=== PATIENT | female | born 1955 | race Caucasian/White ===

== ENCOUNTER → 2022-08-29 14:48 | Outpatient (BNVA) | payer MEDICARE, SELFPAY | PROVIDERS: PCP Internal Medicine; Visit Provider Hospitalist | DX: J41.0 Simple chronic bronchitis (principal); R06.09 Other forms of dyspnea | CPT/HCPCS: 99202 ==

== ENCOUNTER 2022-09-09 07:42 | Outpatient (REF) | payer MEDICARE, SELFPAY ==
--- NOTE | ~2022-09-09 | XR_ITS ---
EXAMINATION: XR CHEST CLINICAL INFORMATION: Dyspnea COMPARISON: None TECHNIQUE: 2 views of the chest were obtained. FINDINGS: No significant abnormality is noted involving the heart, lungs, mediastinum, bony thorax or soft tissues. XR/XR chest 2V IMPRESSION: Unremarkable chest examination.
--- NOTE | 2022-09-09 10:38 | PFT_ITS ---
Forced vital capacity 73%. FEV1 35%. FEV1/FVC ratio is 37. RUN59-51 14% and MVV 30%. Post bronchodilator therapy, there is no significant change. Total lung capacity 112% and residual volume 150%. Diffusion capacity 45%. CONCLUSION: There is evidence of very severe obstructive airway disorder. No significant response to bronchodilator therapy. There is evidence of hyperinflation and air trapping. Clinical correlation is recommended. MD SANJANA Hurley/MODL / [id number]
== END 2022-09-09 07:43 | disposition home or self-care (01) ==
LOC: HO.RESP 07:42
PROVIDERS: PCP Internal Medicine; Visit Provider Hospitalist
DX: R06.00 Dyspnea, unspecified (principal)
CPT/HCPCS: 71046; 94060; 94727; 94729

== ENCOUNTER → 2022-10-11 12:59 | Outpatient (BNVA) | payer MEDICARE, SELFPAY | PROVIDERS: PCP Internal Medicine; Visit Provider Hospitalist | DX: R06.09 Other forms of dyspnea (principal); J41.0 Simple chronic bronchitis | CPT/HCPCS: 99212 ==

== ENCOUNTER 2023-04-10 13:00 | Outpatient (AMB) | payer MEDICARE, SELFPAY ==
--- NOTE | 2023-04-10 13:07 | MHC.OFFVIS ---
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: No Allergies amoxicillin [From Augmentin] Allergy (Unknown, Verified 04/10/23 13:10) Unknown ciprofloxacin Allergy (Unknown, Verified 04/10/23 13:10) Unknown clavulanic acid [From Augmentin] Allergy (Unknown, Verified 04/10/23 13:10) Unknown doxycycline Allergy (Unknown, Verified 04/10/23 13:10) Unknown erythromycin base Allergy (Unknown, Verified 04/10/23 13:10) Unknown hydrocodone Allergy (Unknown, Verified 04/10/23 13:10) Unknown sulfamethoxazole [From Bactrim] Allergy (Unknown, Verified 04/10/23 13:10) Unknown trimethoprim [From Bactrim] Allergy (Unknown, Verified 04/10/23 13:10) Unknown Nolex Allergy (Unknown, Uncoded 04/10/23 13:10) Unknown HPI HPI Comments History of Present Illness Details The patient is a 67 year woman who was a former smoker presenting with progressive dyspnea on exertion. She has been noticing worsening symptoms for the last several years. She does state that her symptoms became more apparent after she developed a COVID like illness early in 2019. Typically when she is going a flight of stairs. Moderate severity. Denies any chest pains or palpitations. The patient denies any significant productive cough. As far as exposures she used to smoke but she quit smoking more than 15 years ago. In addition to that she did work in a [employer] company and was some exposure to asbestos. the patient does have a rescue inhaler but does not typically use it. during the examination she was noted to be somewhat barrel-chested and the patient did have diminished breath sounds with some end expiratory wheezing on forced exhalation. Therefore will go ahead and investigate further for any significant obstructive airway disease. 10/11/2022 the patient is here for pulmonary follow-up visit. The patient overall is feeling a lot better on the Trelegy inhaler. She was able to continue it. Recently she was outside working in the [employer] and she felt some increased chest tightness and she had to use her albuterol. However she has not had to use it as often anymore. She did undergo pulmonary function studies which we personally reviewed. The patient does have a severe degree of COPD. Also has severe degree of diffusion impairment. And significant air trapping. She manages this degree of obstruction very well. The patient does get dyspnea on exertion. She does benefit from pulmonary rehabilitation. She also had a chest x-ray demonstrate any acute disease just hyperinflation of the lungs. Therefore, she was going to continue with current respiratory therapy and she will start pulmonary rehabilitation once available. 04/10/2023 the patient is here for pulmonary follow-up visit. Overall the patient still about the same. Complains of dyspnea on exertion. Ibdx-gn-ztrzwmbg severity. She has been on the Trelegy. She is wondering if this is making her gain weight. Unfortunately she had to stop doing the pulmonary rehabilitation based on the fact that her family member got sick and she has been taking care of them. We did talk about underlying pulmonary rehab but she does not have any in should not. Therefore she will continue with the Trelegy for now. Will optimize therapy by adding theophylline to the regimen. We did talk about potential side effects on medication. The patient was start Will 1 tablet daily and then she increase it to twice a day. She will come in and months and also have levels checked to make sure that she is within therapeutic range or lower. [facility] Medical History (Updated 08/29/22 @ 21:23 by Severiano Santamaria MD) Dyspnea Social History (Updated 08/29/22 @ 15:06 by ABEBA Fletcher) Household Members: Spouse and Children Patient Tobacco Use Status: Former Tobacco user Tobacco use type: Cigarette Years Smoked: 20 Second Hand Smoke Exposure: No Review of Systems Const Denies fever(s) Eyes Denies change in vision ENT Denies change in voice Card Denies chest pain, Denies palpitations and Reports dyspnea on exertion Resp Denies chest congestion and Reports dyspnea on exertion GI Reports no additional complaints Musc Reports no additional complaints Skin/Breast Denies rash Neuro Reports no additional complaints Endo Reports no additional complaints and Denies palpitations [place]/Lymph Denies easy bruising Aller/Immun Reports no additional complaints Physical Exam Vital Signs: Last Vital Signs Pulse 79 04/10/23 13:08 BP 128/70 04/10/23 13:08 Pulse Ox 97 04/10/23 13:08 Oxygen Delivery Method Room Air 04/10/23 13:08 BMI result Body Mass Index 24.4 Const General: comfortable HEENT Head: Yes normal to inspection Eyes General: appearance normal, both eyes and all related structures Neck Neck: Yes supple Chest Chest palpation & inspection: normal inspection of the chest Resp Effort & Inspection: normal respiratory effort Auscultation: no wheezes and diminished lung sounds Cardio Rate: regular rate Rhythm: regular rhythm Heart sounds: S1 normal heart sound present and S2 normal heart sound present GI Auscultation: normal bowel sounds Skin Rashes: no rashes Extrem General: Yes no clubbing, cyanosis or edema Assessment & Plan Assessment & Plan (1) Dyspnea: Code(s): R06.00 - Dyspnea, unspecified Qualifiers: Dyspnea type: dyspnea on exertion Qualified Code(s): R06.09 - Other forms of dyspnea (2) COPD (chronic obstructive pulmonary disease): Comment: Suspicion Code(s): J44.9 - Chronic obstructive pulmonary disease, unspecified Qualifiers: COPD type: chronic bronchitis Chronic bronchitis type: simple Qualified Code(s): J41.0 - Simple chronic bronchitis Plan continue Trelegy CLAUS as needed start Theophylline labs, theophylline level pulmonary rehab discontinued by ot F/U 4-6 months Orders: Orders Basic Metabolic Panel Today J44.9 - Chronic obstructive pulmonary disease, unspecified Liver Panel Today J44.9 - Chronic obstructive pulmonary disease, unspecified Complete Blood Count Auto Diff Today J44.9 - Chronic obstructive pulmonary disease, unspecified Theophylline Today J44.9 - Chronic obstructive pulmonary disease, unspecified Medications: New theophylline ER 300 mg PO Q12H 30 days 60 tabs 4RF Coding Level of Care Code Est Pt Level 4 (20394) Diagnoses Dyspnea R06.09 Dyspnea type: dyspnea on exertion COPD (chronic obstructive pulmonary disease) J41.0 COPD type: chronic bronchitis Chronic bronchitis type: simple Time Spent (min) 17
[2023-04-10 13:08] VITALS: BP 128/70; PULSE 79; O2SAT 97; BMI 24.4
== END 2023-04-10 13:38 | disposition home or self-care (01) ==
PROVIDERS: PCP Internal Medicine; Visit Provider Hospitalist
DX: R06.09 Other forms of dyspnea (principal); J41.0 Simple chronic bronchitis
CPT/HCPCS: 99214

== ENCOUNTER → 2023-04-10 13:00 | Outpatient (BNVA) | payer MEDICARE, SELFPAY | PROVIDERS: PCP Internal Medicine; Visit Provider Hospitalist | DX: R06.00 Dyspnea, unspecified (principal); J41.0 Simple chronic bronchitis | CPT/HCPCS: 99212 ==

== ENCOUNTER 2023-06-26 09:27 | Outpatient (AMB) | payer MEDICARE, SELFPAY ==
[2023-06-26 09:36] VITALS: BP 138/72; PULSE 85; O2SAT 98; BMI 25.0
--- NOTE | 2023-06-26 09:36 | A.OFFVIS_ITS ---
Intake Vital Signs 06/26/23 09:36 Height 5 ft 2 in Weight 136 lb 10.986 oz BMI 25.0 BP 138/72 Blood Pressure Location Lt brachial Position Sitting Pulse 85 Pulse Source Doppler Pulse Oximetry (%) 98 Oxygen Delivery Method Room Air Intake Visit Reasons: PFT Follow Up Allergies amoxicillin [From Augmentin] Allergy (Unknown, Verified 06/26/23 09:38) Unknown ciprofloxacin Allergy (Unknown, Verified 06/26/23 09:38) Unknown clavulanic acid [From Augmentin] Allergy (Unknown, Verified 06/26/23 09:38) Unknown doxycycline Allergy (Unknown, Verified 06/26/23 09:38) Unknown erythromycin base Allergy (Unknown, Verified 06/26/23 09:38) Unknown hydrocodone Allergy (Unknown, Verified 06/26/23 09:38) Unknown sulfamethoxazole [From Bactrim] Allergy (Unknown, Verified 06/26/23 09:38) Unknown trimethoprim [From Bactrim] Allergy (Unknown, Verified 06/26/23 09:38) Unknown Nolex Allergy (Unknown, Uncoded 04/10/23 13:10) Unknown HPI HPI Comments History of Present Illness Details The patient is a 68 year woman who was a former smoker presenting with progressive dyspnea on exertion. She has been noticing worsening symptoms for the last several years. She does state that her symptoms became more apparent after she developed a COVID like illness early in 2019. Typically when she is going a flight of stairs. Moderate severity. Denies any chest pains or palpitations. The patient denies any significant productive cough. As far as exposures she used to smoke but she quit smoking more than 15 years ago. In addition to that she did work in a [employer] company and was some exposure to asbestos. the patient does have a rescue inhaler but does not typically use it. during the examination she was noted to be somewhat barrel-chested and the patient did have diminished breath sounds with some end expiratory wheezing on forced exhalation. Therefore will go ahead and investigate further for any significant obstructive airway disease. 10/11/2022 the patient is here for pulmon vitaly follow-up visit. The patient debra ward is feeling a lot better on the Trelegy inhaler. She was able to continue it. Recently she was outside working in the [employer] and she felt some increased chest tightness and she had to use her albuterol. However she has not had to use it as often anymore. She did undergo pulmonary function studies which we personally reviewed. The patient does have a severe degree of COPD. Also has severe degree of diffusion impairment. And significant air trapping. She manages this degree of obstruction very well. The patient does get dyspnea on exertion. She does benefit from pulmonary rehabilitation. She also had a chest x-ray demonstrate any acute disease just hyperinflation of the lungs. Therefore, she was going to continue with current respiratory therapy and she will start pulmonary rehabilitation once available. 04/10/2023 the patient is here for pulmon vitaly follow-up visit. Overall the patient still about the same. Complains of dyspnea on exertion. Dohy-os-jskqvbei severity. She has been on the Trelegy. She is wondering if this is making her gain weight. Unfortunately she had to stop doing the pulmonary rehabilitation based on the fact that her family member got sick and she has been taking care of them. We did talk about underlying pulmonary rehab but she does not have any in should not. Therefore she will continue with the Trelegy for now. Will optimize therapy by adding theophylline to the regimen. We did talk about potential side effects on medication. The patient was start Will 1 tablet daily and then she increase it to twice a day. She will come in and months and also have levels checked to make sure that she is within therapeutic range or lower. 06/26/2023 the patient is here for a pulm onary follow-up visit. The patient is overall feeling better overall. He she continues to use the Trelegy inhaler. She has not had to use her rescue inhaler. She continues to do some exercise at home. Although I did provide her with the online pulmonary rehab information her for her to start the online rehab. The patient also tried theophylline. Unfortunately she had adverse effects and she stop the quickly which is good. Overall she is doing better she is not having significant wheezing at this time. Will not add any additional medications at this time. She will continue with current respiratory regimen will follow-up in 8 months. [facility] Medical History (Updated 06/26/23 @ 18:57 by Severiano Santamaria MD) Dyspnea Social History Household Members: Spouse and Children Patient Tobacco Use Status: Former Tobacco user Tobacco use type: Cigarette Years Smoked: 20 Second Hand Smoke Exposure: No Review of Systems Const Denies fever(s) Eyes Denies change in vision ENT Denies change in voice Card Denies chest pain, Denies palpitations and Reports dyspnea on exertion Resp Denies chest congestion and Reports dyspnea on exertion GI Reports no additional complaints Musc Reports no additional complaints Skin/Breast Denies rash Neuro Reports no additional complaints Endo Reports no additional complaints and Denies palpitations [place]/Lymph Denies easy bruising Aller/Immun Reports no additional complaints Physical Exam Vital Signs: Last Vital Signs Pulse 85 06/26/23 09:36 BP 138/72 06/26/23 09:36 Pulse Ox 98 06/26/23 09:36 Oxygen Delivery Method Room Air 06/26/23 09:36 BMI result Body Mass Index 25.0 Const General: comfortable HEENT Head: Yes normal to inspection Eyes General: appearance normal, both eyes and all related structures Neck Neck: Yes supple Chest Chest palpation & inspection: normal inspection of the chest Resp Effort & Inspection: normal respiratory effort Auscultation: no wheezes and diminished lung sounds Cardio Rate: regular rate Rhythm: regular rhythm Heart sounds: S1 normal heart sound present and S2 normal heart sound present GI Auscultation: normal bowel sounds Skin Rashes: no rashes Extrem General: Yes no clubbing, cyanosis or edema Assessment & Plan Assessment & Plan (1) Dyspnea: Code(s): R06.00 - Dyspnea, unspecified Qualifiers: Dyspnea type: dyspnea on exertion Qualified Code(s): R06.09 - Other forms of dyspnea (2) COPD (chronic obstructive pulmonary disease): Code(s): J44.9 - Chronic obstructive pulmonary disease, unspecified Qualifiers: COPD type: chronic bronchitis Chronic bronchitis type: simple Qualified Code(s): J41.0 - Simple chronic bronchitis Plan continue Trelegy CLAUS as needed stopped Theophylline due to adverse effects pulmonary rehab discontinued F/U 8-12 months Coding Level of Care Code Est Pt Level 4 (63273) Diagnoses Dyspnea on exertion R06.09 Dyspnea type: dyspnea on exertion Simple chronic bronchitis J41.0 COPD type: chronic bronchitis Chronic bronchitis type: simple Time Spent (min) 16
== END 2023-06-26 10:02 | disposition home or self-care (01) ==
PROVIDERS: PCP Internal Medicine; Visit Provider Hospitalist
DX: R06.09 Other forms of dyspnea (principal); J41.0 Simple chronic bronchitis
CPT/HCPCS: 99214

== ENCOUNTER → 2023-06-26 09:27 | Outpatient (BNVA) | payer MEDICARE, SELFPAY | PROVIDERS: PCP Internal Medicine; Visit Provider Hospitalist | DX: R06.09 Other forms of dyspnea (principal); J41.0 Simple chronic bronchitis | CPT/HCPCS: 99212 ==

== ENCOUNTER 2024-01-12 09:29 | Outpatient (REF) | payer MEDICARE, SELFPAY ==
--- NOTE | ~2024-01-12 | XR_ITS ---
EXAMINATION: XR CHEST CLINICAL INFORMATION: Simple chronic bronchitis. COMPARISON: 09/09/2022. TECHNIQUE: 2 views of the chest were obtained. FINDINGS: Increased streaky opacities at the lung bases, right greater than left characteristic of atelectasis/scar, although an infectious/inflammatory process should also be considered in the appropriate clinical setting. No pleural effusion. No new focal consolidation to suggest pneumonia. Degenerative changes in the thoracic spine. XR/XR chest 2V IMPRESSION: Increased streaky opacities at the lung bases, right greater than left, characteristic of atelectasis/scar, although an infectious/inflammatory process should also be considered in the appropriate clinical setting.
[2024-01-12 10:58] LABS: MANUAL DIFF FLAG NO
[2024-01-12 11:22] LABS: Basophils Absolute Auto 0.1 X10*3/uL (0.0-0.2); Basophils Percent Auto 0.9 % (0-2); Eosinophils Absolute Auto 0.1 X10*3/uL (0.0-0.4); Eosinophils Percent Auto 2.5 % (0-4); Hematocrit 42.3 % (37.0-47.0); Hemoglobin 14.4 g/dl (12.0-16.0); Imm Gran Abs Auto 0.04 X10*3/uL (0.00-0.03); Imm Gran Pct Auto 0.7 % (0.0-0.4); Lymphocytes Absolute Auto 0.9 X10*3/uL (1.2-4.9); Lymphocytes Percent Auto 15.6 % (20-40); Mean Corpuscular Hemoglobin 31.4 pg (27.0-33.0); Mean Corpuscular Volume 92.2 fL (80.0-98.0); Mean Platelet Volume 11.1 fL (9.4-12.3); Monocytes Absolute Auto 0.5 X10*3/uL (0.1-1.2); Neutrophils Absolute Auto 4.1 x10*3/uL (2.0-8.3); Neutrophils Percent Auto 72.3 % (45-73); Platelet Count 186 X10*3/uL (160-400); Red Blood Count 4.59 X10*6/uL (4.20-5.50); Red Cell Distribution Width 13.4 % (11.0-16.0); White Blood Count 5.6 X10*3/uL (4.8-10.8)
[2024-01-12 12:01] LABS: Alanine Aminotransferase 19 U/L (0-31); Albumin Level 4.6 g/dL (3.5-5.0); Alkaline Phosphatase 93 U/L (39-117); Anion Gap 15 (12-20); Aspartate Amino Transferase 17 U/L (5-31); Bilirubin Direct 0.3 mg/dL (0.0-0.5); Bilirubin Total 1.1 mg/dL (0.0-1.0); Blood Urea Nitrogen 8 mg/dL (9-16); Calcium 9.7 mg/dL (8.4-10.2); Carbon Dioxide 25 mmol/L (22-29); Chloride 106 mmol/L (96-108); Estimated Glomerular Filt Rate > 60; Glucose Random 92 mg/dL (60-115); Potassium 3.9 mmol/L (3.3-5.1); Sodium 142 mmol/L (135-145); Total Protein 7.5 g/dL (6.5-8.0)
[2024-01-14 08:30] LABS: Theophylline 1.3
== END 2024-01-12 09:30 | disposition home or self-care (01) ==
LOC: HO.LAB 09:29
PROVIDERS: PCP Internal Medicine; Visit Provider Hospitalist
DX: J41.0 Simple chronic bronchitis (principal); R06.09 Other forms of dyspnea; Z86.16 Personal history of COVID-19
CPT/HCPCS: 36415; 71046; 80048; 80076; 80198; 85025; 99212

== ENCOUNTER 2024-01-12 09:29 | Outpatient (AMB) | payer MEDICARE, SELFPAY ==
[2024-01-12 09:53] VITALS: BP 132/70; PULSE 76; O2SAT 97; BMI 23.8
--- NOTE | 2024-01-12 09:53 | MHC.OFFVIS ---
Vital Signs 01/12/24 09:53 Height 5 ft 2 in Weight 130 lb BMI 23.8 BP 132/70 Blood Pressure Location Lt brachial Position Sitting Pulse 76 Pulse Source Pulse Oximeter Pulse Oximetry (%) 97 Oxygen Delivery Method Room Air Intake Visit Reasons: COPD Cigarette Examiner Required: No Allergies amoxicillin [From Augmentin] Allergy (Unknown, Verified 01/12/24 09:55) Unknown ciprofloxacin Allergy (Unknown, Verified 01/12/24 09:55) Unknown clavulanic acid [From Augmentin] Allergy (Unknown, Verified 01/12/24 09:55) Unknown doxycycline Allergy (Unknown, Verified 01/12/24 09:55) Unknown erythromycin base Allergy (Unknown, Verified 01/12/24 09:55) Unknown hydrocodone Allergy (Unknown, Verified 01/12/24 09:55) Unknown sulfamethoxazole [From Bactrim] Allergy (Unknown, Verified 01/12/24 09:55) Unknown trimethoprim [From Bactrim] Allergy (Unknown, Verified 01/12/24 09:55) Unknown theophylline Adverse Reaction (Intermediate, Unverified 01/12/24 21:48) Anxiety Nolex Allergy (Unknown, Uncoded 01/12/24 09:55) Unknown HPI Comments Details: The patient is a 68 year woman who was a former smoker presenting with progressive dyspnea on exertion. She has been noticing worsening symptoms for the last several years. She does state that her symptoms became more apparent after she developed a COVID like illness early in 2019. Typically when she is going a flight of stairs. Moderate severity. Denies any chest pains or palpitations. The patient denies any significant productive cough. As far as exposures she used to smoke but she quit smoking more than 15 years ago. In addition to that she did work in a [employer] company and was some exposure to asbestos. the patient does have a rescue inhaler but does not typically use it. during the examination she was noted to be somewhat barrel-chested and the patient did have diminished breath sounds with some end expiratory wheezing on forced exhalation. Therefore will go ahead and investigate further for any significant obstructive airway disease. 10/11/2022 the patient is here for pulmonary follow-up visit. The patient overall is feeling a lot better on the Trelegy inhaler. She was able to continue it. Recently she was outside working in the [employer] and she felt some increased chest tightness and she had to use her albuterol. However she has not had to use it as often anymore. She did undergo pulmonary function studies which we personally reviewed. The patient does have a severe degree of COPD. Also has severe degree of diffusion impairment. And significant air trapping. She manages this degree of obstruction very well. The patient does get dyspnea on exertion. She does benefit from pulmonary rehabilitation. She also had a chest x-ray demonstrate any acute disease just hyperinflation of the lungs. Therefore, she was going to continue with current respiratory therapy and she will start pulmonary rehabilitation once available. 04/10/2023 the patient is here for pulmonary follow-up visit. Overall the patient still about the same. Complains of dyspnea on exertion. Solt-hh-amiofaos severity. She has been on the Trelegy. She is wondering if this is making her gain weight. Unfortunately she had to stop doing the pulmonary rehabilitation based on the fact that her family member got sick and she has been taking care of them. We did talk about underlying pulmonary rehab but she does not have any in should not. Therefore she will continue with the Trelegy for now. Will optimize therapy by adding theophylline to the regimen. We did talk about potential side effects on medication. The patient was start Will 1 tablet daily and then she increase it to twice a day. She will come in and months and also have levels checked to make sure that she is within therapeutic range or lower. 06/26/2023 the patient is here for a pulmonary follow-up visit. The patient is overall feeling better overall. He she continues to use the Trelegy inhaler. She has not had to use her rescue inhaler. She continues to do some exercise at home. Although I did provide her with the online pulmonary rehab information her for her to start the online rehab. The patient also tried theophylline. Unfortunately she had adverse effects and she stop the quickly which is good. Overall she is doing better she is not having significant wheezing at this time. Will not add any additional medications at this time. She will continue with current respiratory regimen will follow-up in 8 months. 01/12/2024 the patient is here for pulmonary follow-up visit. Overall the patient has been doing fairly well. Now with the season change she does have a hard time at times, with worsening dyspnea on exertion [id number] severity. She does use her rescue inhaler. Trelegy inhaler has been affecting beneficial. She does use her rescue inhaler a couple times a week. She does get winded going up a flight of stairs. We did look at her PFTs from 2022 which demonstrated a did diffusing capacity 45% predicted. Her pulse ox today was 95% which is reassuring. Will go ahead and plan to repeat her PFTs and a 6 minute walk test in a year's time. The patient may indeed reach a point where she may benefit from oxygen supplementation with activity. The patient also documented a cough. The cough at times can be productive in nature specially before dinner. We did talk about vasomotor rhinitis potentially result in worsening secretions. She can try the ipratropium nasal spray which I provided for her. Patient should also have a chest x-ray since she has not had an x-ray in a year. If she has any worsening symptoms she can always call for an earlier assessment otherwise will follow-up next year with PFTs and a 6 minute walk test. [facility] Medical History (Updated 01/12/24 @ 10:20 by Severiano Santamaria MD) Chronic cough Dyspnea Social History Household Members: Spouse and Children Patient Tobacco Use Status: Former Tobacco user Tobacco use type: Cigarette Years Smoked: 20 Second Hand Smoke Exposure: No Review of Systems Const Denies fever(s) Eyes Denies change in vision ENT Denies change in voice Card Denies chest pain, Denies palpitations and Reports dyspnea on exertion Resp Denies chest congestion and Reports dyspnea on exertion GI Reports no additional complaints Musc Reports no additional complaints Skin/Breast Denies rash Neuro Reports no additional complaints Endo Reports no additional complaints and Denies palpitations [place]/Lymph Denies easy bruising Aller/Immun Reports no additional complaints Physical Exam Vital Signs: Last Vital Signs Pulse 76 01/12/24 09:53 BP 132/70 01/12/24 09:53 Pulse Ox 97 01/12/24 09:53 Oxygen Delivery Method Room Air 01/12/24 09:53 BMI result Body Mass Index 23.8 Const General: comfortable HEENT Head: Yes normal to inspection Eyes General: appearance normal, both eyes and all related structures Neck Neck: Yes supple Chest Chest palpation & inspection: normal inspection of the chest Resp Effort & Inspection: normal respiratory effort Auscultation: no wheezes and diminished lung sounds Cardio Rate: regular rate Rhythm: regular rhythm Heart sounds: S1 normal heart sound present and S2 normal heart sound present GI Auscultation: normal bowel sounds Skin Rashes: no rashes Extrem General: Yes no clubbing, cyanosis or edema Assessment & Plan Assessment & Plan (1) Dyspnea: Code(s): R06.00 - Dyspnea, unspecified Category: Medical Qualifiers: Dyspnea type: dyspnea on exertion Qualified Code(s): R06.09 - Other forms of dyspnea (2) COPD (chronic obstructive pulmonary disease): Code(s): J44.9 - Chronic obstructive pulmonary disease, unspecified Category: Medical Qualifiers: COPD type: chronic bronchitis Chronic bronchitis type: simple Qualified Code(s): J41.0 - Simple chronic bronchitis Plan continue Trelegy CLAUS as needed CXR F/U 8-12 months Orders: Orders XR chest 2V Today J41.0 - Simple chronic bronchitis, R05.3 - Chronic cough Medications: New ipratropium bromide administer into each nostril 2 sprays intranasal TID PRN 15 mL 6RF allergy symptoms Changed From albuterol sulfate 90 mcg/actuation 2 puffs PO Q6H PRN 8.5 grams 0RF for wheezing J41.0 - Simple chronic bronchitis To albuterol sulfate 90 mcg/actuation 2 puffs inhalation Q6H PRN 8.5 grams 11RF for wheezing J41.0 - Simple chronic bronchitis Refilled shfamvqxsgt-zhiatjjed-vsmifnmg 200-62.5-25 mcg (Trelegy Ellipta) 1 ea PO DAILY 60 ea 0RF Coding Level of Care Code Est Pt Level 4 (50520) Diagnoses Dyspnea on exertion R06.09 Dyspnea type: dyspnea on exertion Simple chronic bronchitis J41.0 COPD type: chronic bronchitis Chronic bronchitis type: simple Time Spent (min) 16
== END 2024-01-12 10:25 | disposition home or self-care (01) ==
PROVIDERS: PCP Internal Medicine; Visit Provider Hospitalist
DX: R06.09 Other forms of dyspnea (principal); J41.0 Simple chronic bronchitis
CPT/HCPCS: 99214

== ENCOUNTER 2025-02-22 08:37 | Outpatient (AMB) | payer MEDICARE, SELFPAY ==
--- NOTE | 2025-02-22 08:44 | A.OFFVIS_ITS ---
Vital Signs 02/22/25 08:45 Height 5 ft 2 in Weight 136 lb 10.986 oz BMI 25.0 BP 140/68 H Blood Pressure Location Lt brachial Position Sitting Pulse 74 Pulse Source Pulse Oximeter Pulse Oximetry (%) 95 Oxygen Delivery Method Room Air Intake Visit Reasons: 1 yr f/u [employer] Required: No Accompanied by: Self / Same As Patient Allergies amoxicillin (From Augmentin) Allergy (Unknown, Verified 02/22/25 08:50) Unknown ciprofloxacin Allergy (Unknown, Verified 02/22/25 08:50) Unknown clavulanic acid (From Augmentin) Allergy (Unknown, Verified 02/22/25 08:50) Unknown doxycycline Allergy (Unknown, Verified 02/22/25 08:50) Unknown erythromycin base Allergy (Unknown, Verified 02/22/25 08:50) Unknown hydrocodone Allergy (Unknown, Verified 02/22/25 08:50) Unknown sulfamethoxazole (From Bactrim) Allergy (Unknown, Verified 02/22/25 08:50) Unknown trimethoprim (From Bactrim) Allergy (Unknown, Verified 02/22/25 08:50) Unknown theophylline Adverse Reaction (Intermediate, Verified 02/22/25 08:50) Anxiety Nolex Allergy (Unknown, Uncoded 01/12/24 09:55) Unknown HPI Comments Details: The patient is a 69 year woman who was a former smoker presenting with progressive dyspnea on exertion. She has been noticing worsening symptoms for the last several years. She does state that her symptoms became more apparent after she developed a COVID like illness early in 2019. Typically when she is going a flight of stairs. Moderate severity. Denies any chest pains or pa lpitations. The patient denies any significant productive cough. As far as exposures she used to smoke but she quit smoking more than 15 years ago. In addition to that she did work in a [employer] company and was some exposure to asbestos. the patient does have a rescue inhaler but does not typically use it. during the examination she was noted to be somewhat barrel-chested and the patient did have diminished breath sounds with some end expiratory wheezing on forced exhalation. Therefore will go ahead and investigate further for any significant obstructive airway disease. 10/11/2022 the patient is here for pulmonary follow-up visit. The patient overall is feeling a lot better on the Trelegy inhaler. She was able to continue it. Recently she was outside working in the [employer] and she felt some increased chest tightness and she had to use her albuterol. However she has not had to use it as often anymore. She did undergo pulmonary function studies which we personally reviewed. The patient does have a severe degree of COPD. Also has severe degree of diffusion impairment. And significant air trapping. She manages this degree of obstruction very well. The patient does get dyspnea on exertion. She does benefit from pulmonary rehabilitation. She also had a chest x-ray demonstrate any acute disease just hyperinflation of the lungs. Therefore, she was going to continue with current respiratory therapy and she will start pulmonary rehabilitation once available. 04/10/2023 the patient is here for pulmonary follow-up visit. Overall the patient still about the same. Complains of dyspnea on exertion. [id number]-[id number] severity. She has been on the Trelegy. She is wondering if this is making her gain weight. Unfortunately she had to stop doing the pulmonary rehabilitation based on the fact that her family member got sick and she has been taking care of them. We did talk about underlying pulmonary rehab but she does not have any in should not. Therefore she will continue with the Trelegy for now. Will optimize therapy by adding theophylline to the regimen. We did talk about potential side effects on medication. The patient was start Will 1 tablet daily and then she increase it to twice a day. She will come in and months and also have levels checked to make sure that she is within therapeutic range or lower. 06/26/2023 the patient is here for a pulmonary follow-up visit. The patient is overall feeling better overall. He she continues to use the Trelegy inhaler. She has not had to use her rescue inhaler. She continues to do some exercise at home. Although I did provide her with the online pulmonary rehab information her for her to start the online rehab. The patient also tried theophylline. Unfortunately she had adverse effects and she stop the quickly which is good. Overall she is doing better she is not having significant wheezing at this time. Will not add any additional medications at this time. She will continue with current respiratory regimen will follow-up in 8 months. 01/12/2024 the patient is here for pulmonary follow-up visit. Overall the patient has been doing fairly well. Now with the season change she does have a hard time at times, with worsening dyspnea on exertion [id number] severity. She does use her rescue inhaler. Trelegy inhaler has been affecting beneficial. She does use her rescue inhaler a couple times a week. She does get winded going up a flight of stairs. We did look at her PFTs from 2022 which demonstrated a did diffusing capacity 45% predicted. Her pulse ox today was 95% which is reassuring. Will go ahead and plan to repeat her PFTs and a 6 minute walk test in a year's time. The patient may indeed reach a point where she may benefit from oxygen supplementation with activity. The patient also documented a cough. The cough at times can be productive in nature specially before dinner. We did talk about vasomotor rhinitis potentially result in worsening secretions. She can try the ipratropium nasal spray which I provided for her. Patient should also have a chest x-ray since she has not had an x-ray in a year. If she has any worsening symptoms she can always call for an earlier assessment otherwise will follow-up next year with PFTs and a 6 minute walk test. 02/22/2025 the patient is here for pulmonary follow-up visit. Overall she is doing okay although she is noticing increasing shortness of breath. Moderate severity. She has been on the Trelegy inhaler. She also uses her rescue inhaler few times a day. We did go for brief walking oximetry and her oxygen did drop to about 90%. Therefore she understands she is likely having shortness of breath due to the fact that her oxygens dropping specially when lifting and going up an incline where she may have increased demand. The inhalers have been good she has been coughing dose some mucus which is darker in color. Typically worse at nighttime. She does have atelectasis of the right based on her pre vious x-ray. Will go ahead and start her on Daliresp. She has multiple allergies so therefore antibiotics are difficult for her to tolerate. She understands that the Daliresp may cause some GI symptoms. She will develop some tolerance and then when she is ready she can always call for the higher dose. The patient will undergo a chest x-ray and blood work today. If the x-ray is abnormal I will let her know she will need additional imaging studies. When she returns in 4 months will have her undergo pulmonary function studies. I do believe that she will be an excellent candidate for pulmonary rehabilitation. [facility] Medical History (Updated 01/12/24 @ 10:20 by Severiano Santamaria MD) Chronic cough Dyspnea Social History Household Members: Spouse and Children Patient Tobacco Use Status: Former Tobacco user Tobacco use type: Cigarette Years Smoked: 20 Second Hand Smoke Exposure: No Review of Systems Const Denies fever(s) Eyes Denies change in vision ENT Denies change in voice Card Denies chest pain, Denies palpitations and Reports dyspnea on exertion Resp Denies chest congestion and Reports dyspnea on exertion GI Reports no additional complaints Musc Reports no additional complaints Skin/Breast Denies rash Neuro Reports no additional complaints Endo Reports no additional complaints and Denies palpitations [place]/Lymph Denies easy bruising Aller/Immun Reports no additional complaints Physical Exam Vital Signs: Last Vital Signs Pulse 74 02/22/25 08:45 BP 140/68 H 02/22/25 08:45 Pulse Ox 95 02/22/25 08:45 Oxygen Delivery Method Room Air 02/22/25 08:45 BMI result Body Mass Index 25.0 Const General: comfortable HEENT Head: Yes normal to inspection Eyes General: appearance normal, both eyes and all related structures Neck Neck: Yes supple Chest Chest palpation & inspection: normal inspection of the chest Resp Effort & Inspection: normal respiratory effort Auscultation: no wheezes and diminished lung sounds Cardio Rate: regular rate Rhythm: regular rhythm Heart sounds: S1 normal heart sound present and S2 normal heart sound present GI Auscultation: normal bowel sounds Skin Rashes: no rashes Extrem General: Yes no clubbing, cyanosis or edema Assessment & Plan Assessment & Plan (1) Dyspnea: Code(s): R06.00 - Dyspnea, unspecified Category: Medical Qualifiers: Dyspnea type: dyspnea on exertion Qualified Code(s): R06.09 - Other forms of dyspnea (2) COPD (chronic obstructive pulmonary disease): Code(s): J44.9 - Chronic obstructive pulmonary disease, unspecified Category: Medical Qualifiers: COPD type: chronic bronchitis Chronic bronchitis type: simple Qualified Code(s): J41.0 - Simple chronic bronchitis Plan continue Trelegy CLAUS as needed start Daliresp 250mc Bloodwork/blood gas sputum cx CXR PFTs F/U 4 months Orders: Orders Venous Blood Gas Today J41.0 - Simple chronic bronchitis, R05.3 - Chronic cough XR chest 2V Today J41.0 - Simple chronic bronchitis, R05.3 - Chronic cough Sputum Cult + Gram stain Today J41.0 - Simple chronic bronchitis, R91.1 - Solitary pulmonary nodule Theophylline Today J41.0 - Simple chronic bronchitis, R05.3 - Chronic cough Complete Blood Count Auto Diff Today J41.0 - Simple chronic bronchitis, R05.3 - Chronic cough Immunoglobulin G Subclasses Today J41.0 - Simple chronic bronchitis, R05.3 - Chronic cough PFT pulmonary function test Today J41.0 - Simple chronic bronchitis Medications: New roflumilast (Daliresp) 250 mcg PO DAILY 30 tabs 11RF 30 days J44.9 - Chronic obstructive pulmonary disease, unspecified Coding Level of Care Code Est Pt Level 4 (42037) Complex EM visit Add On G2211 Diagnoses Dyspnea on exertion R06.09 Dyspnea type: dyspnea on exertion Simple chronic bronchitis J41.0 COPD type: chronic bronchitis Chronic bronchitis type: simple Time Spent (min) 17
[2025-02-22 08:45] VITALS: BP 140/68; PULSE 74; O2SAT 95; BMI 25.0
== END 2025-02-22 09:08 | disposition home or self-care (01) ==
PROVIDERS: PCP Internal Medicine; Visit Provider Hospitalist
DX: R06.09 Other forms of dyspnea (principal); J41.0 Simple chronic bronchitis
CPT/HCPCS: 99214; G2211

== ENCOUNTER 2025-02-22 08:37 | Outpatient (REF) | payer MEDICARE, SELFPAY ==
--- NOTE | ~2025-02-22 | XR_ITS ---
EXAMINATION: XR CHEST 2 VIEWS HISTORY: J41.0 - Simple chronic bronchitis COMPARISON: Comparison is made with the prior examination dated 01/12/2024. FINDINGS: PA and lateral views of the chest are submitted. There is linear scarring at the right lung base. The lungs are otherwise clear. There is no pleural effusion, pneumothorax, or pulmonary vascular congestion. The heart is normal in size. The aorta is tortuous. There is degenerative disc disease of the spine. XR/XR chest 2V IMPRESSION: No acute cardiopulmonary abnormality. Electronically signed by: Guru Garber MD 02/22/2025 09:31 AM EDT
[2025-02-22 09:44] LABS: Venous Blood Gas Refer to POC result
[2025-02-22 09:46] LABS: VBG HCO3 29 mmol/L (22-26); VBG O2 % Saturation 56.0 %
[2025-02-22 10:35] LABS: Hematocrit 40.4 % (37.0-47.0); Hemoglobin 13.3 g/dl (12.0-16.0); Imm Gran Abs Auto 0.02 X10*3/uL (0.00-0.03); Imm Gran Pct Auto 0.4 % (0.0-0.4); Lymphocytes Absolute Auto 0.9 X10*3/uL (1.2-4.9); MANUAL DIFF FLAG NO; Mean Corpuscular HGB Conc 32.9 g/dl (31.0-35.0); Mean Corpuscular Hemoglobin 30.0 pg (27.0-33.0); Mean Corpuscular Volume 91.0 fL (80.0-98.0); NRBC Abs Auto 0.000 X10*3/uL (0.0-0.012); NRBC Pct Auto 0.0 /100WBC (0.0-0.2); Platelet Count 195 X10*3/uL (160-400); Red Blood Count 4.44 X10*6/uL (4.20-5.50); White Blood Count 5.1 X10*3/uL (4.8-10.8)
[2025-02-22 15:51] LABS: Theophylline 1.4
[2025-02-24 11:24] LABS: Immunoglobulin G Subclass 1 429 mg/dL (382-929); Immunoglobulin G Subclass 2 243 mg/dL (241-700); Immunoglobulin G Subclass 3 108 mg/dL (22-178); Immunoglobulin G Subclass 4 33.2 mg/dL (4-86); Immunoglobulin G Total 795 mg/dL (600-1540)
== END 2025-02-22 08:38 | disposition home or self-care (01) ==
LOC: HO.XRAY 08:37
PROVIDERS: PCP Internal Medicine; Visit Provider Hospitalist
DX: R06.09 Other forms of dyspnea (principal); J41.0 Simple chronic bronchitis; Z87.891 Personal history of nicotine dependence
CPT/HCPCS: 36415; 71046; 80198; 82784; 82803; 85025; 99212

== ENCOUNTER → 2025-02-22 09:16 | Outpatient (BNV) | payer MEDICARE, SELFPAY | PROVIDERS: PCP Internal Medicine; Visit Provider Radiology Diagnostic Radiology | DX: J41.0 Simple chronic bronchitis (principal) | CPT/HCPCS: 71046 ==

== ENCOUNTER 2025-05-12 08:33 | Outpatient (REF) | payer MEDICARE, SELFPAY ==
--- NOTE | 2025-05-12 08:51 | PFT_ITS ---
Flows: FEV1: 48 % of predicted at 0.98 L FVC: 94 % of predicted at 2.47 L FEV1/FVC: 40 % Bronchodilator response: Absent Volumes: Total lung capacity: 121 % of predicted at 5.62 L Residual volume: 176 % of predicted at 3.23 L Slow vital capacity: 86 % of predicted at 2.39 L Expiratory reserve volume: 59 % of predicted at 0.39 L Diffusion capacity: Moderately decreased Impression: Severe obstructive ventilatory defect with no bronchodilator response. Increased total lung capacity suggests hyperinflation. Increased residual volume suggests air trapping. Decreased diffusion capacity suggests emphysema. MTDD
[2025-05-12 09:43] VITALS: PULSE 69; O2SAT 98
== END 2025-05-12 08:34 | disposition home or self-care (01) ==
LOC: HO.RESP 08:33
PROVIDERS: PCP Internal Medicine; Visit Provider Hospitalist
DX: J41.0 Simple chronic bronchitis (principal)
CPT/HCPCS: 94010; 94640; 94727; 94729

== ENCOUNTER → 2025-05-12 08:51 | Outpatient (BNV) | payer MEDICARE, SELFPAY | PROVIDERS: PCP Internal Medicine; Visit Provider Internal Medicine Pulmonary Disease | DX: J98.4 Other disorders of lung (principal) | CPT/HCPCS: 94060; 94727; 94729 ==